=== PATIENT | female | born 1955 | race Caucasian/White ===

== ENCOUNTER 2017-07-31 21:47 | Observation (INO) | payer BC ==
[~2017-07-31] VITALS: Ht 160 cm; Wt 69.2 kg
[2017-07-31 22:56] LABS: HEMATOCRIT 34.1 % (36.0-46.0); HEMOGLOBIN 12.1 G/DL (11.9-15.5); MCH 32.9 PG (29.0-34.0); MCHC 35.5 G/DL (30.0-36.0); MCV 92.7 FL (83-99); PLATELET COUNT 238 K/uL (156-360); RBC DIS.WIDTH-CV 11.9 % (11.8-14.6); RBC DIS.WIDTH-SD 40.7 % (39-53); RED BLOOD COUNT 3.68 M/uL (3.80-5.20); WHITE BLOOD COUNT 8.1 K/uL (4.1-10.2)
[2017-07-31 23:09] LABS: D-DIMER ELISA < 150.00 ng/mLDDU (<230)
[2017-07-31 23:10] LABS: CHLORIDE 107 mEq/L (99-109); POTASSIUM 3.1 mEq/L (3.7-5.4)
[2017-07-31 23:11] LABS: MAGNESIUM 2.4 mg/dL (1.3-2.7); SODIUM 142 mEq/L (136-147)
[2017-07-31 23:12] LABS: GLUCOSE 107 mg/dL (70-99)
[2017-07-31 23:16] LABS: CREATININE 0.8 mg/dL (0.6-1.3); GFR ESTIMATE (CALCULATED) > 59 mL/min/; TROP-I INTERPRETATION NEGATIVE; TROPONIN-I 0.01 ng/mL (0.0-0.30)
[2017-07-31 23:17] LABS: UREA NITROGEN (BUN) 16 mg/dL (9-23)
[2017-08-01] MEDS ORDERED: BUSPAR15 MG PO (00:39)
[2017-08-01] MEDS ORDERED: LISINOPRIL5 MG PO (00:40)
[2017-08-01] MEDS ORDERED: ALLEGRA ALLERG180 MG PO (00:40)
[2017-08-01] MEDS ORDERED: LIPITOR80 MG PO (00:40)
[2017-08-01] MEDS ORDERED: COREG3.125 M1 PO (00:40)
[2017-08-01] MEDS ORDERED: PLAVIX75 MG PO (00:40)
[2017-08-01] MEDS ORDERED: METRONIDAZOLE45 GM TP (00:40)
[2017-08-01] MEDS ORDERED: MUCINEX1200 MG PO (00:41)
[2017-08-01] MEDS ORDERED: FLONASE16 G1 BOTH NARES (00:41)
[2017-08-01] MEDS ORDERED: ADULT ASPIRIN R81 MG PO (00:41)
[2017-08-01] MEDS ORDERED: MELATONIN10 M1 PO (00:41)
[2017-08-01] MEDS ORDERED: VITAMIN C1000 MG PO (00:41)
[2017-08-01] MEDS ORDERED: VITAMIN B-1000 MCG/1 PO (00:41)
[2017-08-01 04:28] VITALS: BP 110/56
[2017-08-01 07:19] LABS: TROP-I INTERPRETATION NEGATIVE; TROPONIN-I < 0.01 ng/mL (0.0-0.30)
[2017-08-01 07:21] LABS: HDL CHOLESTEROL 27 MG/DL (Desirable>=50); LDL CHOLESTEROL 38 mg/dL (Desirable<100); NON-HDL CHOLESTEROL 50 mg/dL (Desirable<160); TOTAL CHOLESTEROL 77 mg/dL (Desirable<200); TRIGLYCERIDES 60 MG/DL (Normal: <150)
[2017-08-01 07:48] VITALS: BP 120/60
[2017-08-01 09:42] LABS: POTASSIUM 5.2 MEQ/L (3.7-5.4)
[2017-08-01 11:38] VITALS: BP 120/58
[2017-08-01 13:01] LABS: TROP-I INTERPRETATION NEGATIVE; TROPONIN-I < 0.01 ng/mL (0.0-0.30)
== END 2017-08-01 14:00 | disposition home or self-care (01) ==
LOC: EME 21:47 → EDOF 08-01 03:24 → ENRESERV 08-01 03:27 → 4SOUTH 08-01 04:24
PROVIDERS: Hospitalist; Physician Assistant
DX: R07.9 Chest pain, unspecified (principal); I25.10 Atherosclerotic heart disease of native coronary artery without angina pectoris; F41.9 Anxiety disorder, unspecified; E78.5 Hyperlipidemia, unspecified; J45.909 Unspecified asthma, uncomplicated; F32.9 Major depressive disorder, single episode, unspecified; I10 Essential (primary) hypertension; I25.2 Old myocardial infarction; Z87.891 Personal history of nicotine dependence; Z79.82 Long term (current) use of aspirin; Z88.5 Allergy status to narcotic agent; Z90.710 Acquired absence of both cervix and uterus; Z95.5 Presence of coronary angioplasty implant and graft; E87.6 Hypokalemia; Z79.02 Long term (current) use of antithrombotics/antiplatelets; Z83.3 Family history of diabetes mellitus
CPT/HCPCS: 71046; 80048; 80061; 83735; 84132; 84484; 85027; 85379; 93005; 94640; 99281; 99285; G0378

== ENCOUNTER 2017-08-15 11:46 | Inpatient (IN) | payer BC, OTHER ==
[~2017-08-15] VITALS: Ht 160 cm; Wt 74.0 kg
[~2017-08-15 11:46] MED LIST: ADULT ASPIRIN R81 MG PO; ALLEGRA ALLERG180 MG PO; BUSPAR15 MG PO; COREG3.125 M1 PO; FLONASE16 G1 BOTH NARES; LIPITOR80 MG PO; LISINOPRIL5 MG PO; MELATONIN10 M1 PO; METRONIDAZOLE45 GM TP; MUCINEX1200 MG PO; PLAVIX75 MG PO; VITAMIN B-1000 MCG/1 PO; VITAMIN C1000 MG PO; [UNRECOGNIZED DRUG - REMARK]
[2017-08-15 13:15] LABS: CHLORIDE 104 MEQ/L (99-109); CREATININE 0.9 MG/DL (0.6-1.3); GFR ESTIMATE (CALCULATED) > 59 mL/min/; GLUCOSE 111 mg/dL (70-99); POTASSIUM 4.5 MEQ/L (3.7-5.4); SODIUM 140 MEQ/L (136-147); UREA NITROGEN (BUN) 18 mg/dL (9-23)
[2017-08-15 17:59] VITALS: BP 118/58
[2017-08-15 20:19] VITALS: BP 111/54
[2017-08-15 23:27] VITALS: BP 119/58
[2017-08-16 04:16] VITALS: BP 111/56
[2017-08-16 05:10] VITALS: BP 111/56
[2017-08-16 05:46] LABS: BASOPHIL (%) 0.8 % (0-1); BASOPHIL COUNT 0.1 K/uL (0-0.1); EOSINOPHIL (%) 2.9 % (0-5); EOSINOPHIL COUNT 0.2 K/uL (0-0.3); HEMATOCRIT 36.8 % (36.0-46.0); HEMOGLOBIN 12.3 G/DL (11.9-15.5); IMMATURE GRANULOCYTE (%) 0.3 % (0.0-0.7); LYMPHOCYTE (%) 29.6 % (15-42); LYMPHOCYTE COUNT 2.3 K/uL (1.0-2.8); MCH 31.9 PG (29.0-34.0); MCHC 33.4 G/DL (30.0-36.0); MCV 95.3 FL (83-99); MONOCYTE (%) 7.3 % (3-12); MONOCYTE COUNT 0.6 K/uL (0-0.8); NEUTROPHIL (%) 59.1 % (45-76); NEUTROPHIL COUNT 4.6 K/uL (1.8-6.4); PLATELET COUNT 234 K/uL (156-360); RBC DIS.WIDTH-CV 12.1 % (11.8-14.6); RBC DIS.WIDTH-SD 41.9 % (39-53); RED BLOOD COUNT 3.86 M/uL (3.80-5.20); WHITE BLOOD COUNT 7.7 K/uL (4.1-10.2)
[2017-08-16 06:26] LABS: CHLORIDE 111 MEQ/L (99-109); CREATININE 0.8 MG/DL (0.6-1.3); GFR ESTIMATE (CALCULATED) > 59 mL/min/; GLUCOSE 99 mg/dL (70-99); POTASSIUM 4.4 MEQ/L (3.7-5.4); SODIUM 141 MEQ/L (136-147); UREA NITROGEN (BUN) 14 mg/dL (9-23)
[2017-08-16 08:45] VITALS: BP 105/51
[2017-08-16 11:37] VITALS: BP 112/55
[2017-08-16] MEDS ORDERED: NITROSTAT0.4 MG SL (11:44)
[2017-08-16] MEDS ORDERED: ASPIRIN EC325 MG PO (11:44)
== END 2017-08-16 13:28 | disposition home or self-care (01) | DRG 247 ==
LOC: CATH 11:46 → CANRESERV 15:15 → ENRESERV 15:15 → 4EAST 15:45 → 2SOUTH 15:45 → ENRESERV 15:54 → 4EAST 17:42
PROVIDERS: Internal Medicine Interventional Cardiology
PROC: B2151ZZ Fluoroscopy of Left Heart using Low Osmolar Contrast (ICD-10-PCS; principal; 2017-08-15)
PROC: 027034Z Dilation of Coronary Artery, One Artery with Drug-eluting Intraluminal Device, Percutaneous Approach (ICD-10-PCS; principal; 2017-08-15)
PROC: 4A023N7 Measurement of Cardiac Sampling and Pressure, Left Heart, Percutaneous Approach (ICD-10-PCS; principal; 2017-08-15)
PROC: B2111ZZ Fluoroscopy of Multiple Coronary Arteries using Low Osmolar Contrast (ICD-10-PCS; principal; 2017-08-15)
DX: I25.10 Atherosclerotic heart disease of native coronary artery without angina pectoris (principal); F33.9 Major depressive disorder, recurrent, unspecified; I50.9 Heart failure, unspecified; E78.2 Mixed hyperlipidemia; I10 Essential (primary) hypertension; F43.23 Adjustment disorder with mixed anxiety and depressed mood; I25.5 Ischemic cardiomyopathy; R94.39 Abnormal result of other cardiovascular function study; I35.0 Nonrheumatic aortic (valve) stenosis; F41.9 Anxiety disorder, unspecified; I25.2 Old myocardial infarction; Z79.82 Long term (current) use of aspirin; Z79.51 Long term (current) use of inhaled steroids; Z88.5 Allergy status to narcotic agent
CPT/HCPCS: 80048; 85025; 87624; 93005; C1769; C1874; C1887; J1644; J2250; J3010; J7030